=== PATIENT | female | born 1990 | race Caucasian/White ===

== ENCOUNTER 2019-02-05 12:58 | Emergency (ER) | payer OTHER ==
[~2019-02-05] VITALS: Ht 162.6 cm; Wt 65.8 kg
[2019-02-05 13:01] VITALS: BP_SYST 107
--- NOTE | 2019-02-05 13:04 | NUR ---
Patient to ER bed 07 to gown for evaluation. Side rails up.
--- NOTE | 2019-02-05 13:10 | NUR ---
MARIA DE JESUS Solano at bedside examining patient.
--- NOTE | 2019-02-05 13:10 | NUR ---
PT came into the ER complaining of bug bites on her lower extremities. PT advised that the discomfort has continued the past 3 days. PT is not presenting any signs of acute distress.
--- NOTE | 2019-02-05 13:22 | NUR ---
Patient given written and verbal discharge instructions and verbalizes understanding. ER MD discussed with patient the results and treatment provided. Patient in stable condition. ID arm band removed. Rx of Bactrim given. Patient educated on pain management and to follow up with PMD. Pain Scale 0/10. Opportunity for questions provided and answered. Medication side effect fact sheet provided.
[2019-02-05 13:25] VITALS: BP_SYST 107
== END 2019-02-05 13:22 | disposition home or self-care (01) ==
LOC: SED 12:58
DX: S80.862A Insect bite (nonvenomous), left lower leg, initial encounter (principal); L03.116 Cellulitis of left lower limb; Z88.0 Allergy status to penicillin; W57.XXXA Bitten or stung by nonvenomous insect and other nonvenomous arthropods, initial encounter; Y93.89 Activity, other specified; Y92.89 Other specified places as the place of occurrence of the external cause; Y99.8 Other external cause status
CPT/HCPCS: 99283